=== PATIENT | male | born 1950 | race Caucasian/White ===

== ENCOUNTER 2024-06-13 15:47 | Emergency (ER) | payer MEDICARE, MEDICAID ==
[2024-06-13] MEDS: Morphine 2 MG/ML SYRINGE IM ONE (16:32)
[2024-06-13] MEDS: Acetaminophen/oxyCODONE 325-5 MG Tab PO PRN (17:26)
== END 2024-06-13 17:33 | disposition home or self-care (01) ==
LOC: VM.ED 15:47
DX: S22.42XA Multiple fractures of ribs, left side, initial encounter for closed fracture (principal); I10 Essential (primary) hypertension; E78.00 Pure hypercholesterolemia, unspecified; F17.210 Nicotine dependence, cigarettes, uncomplicated; Z79.899 Other long term (current) drug therapy; W00.0XXA Fall on same level due to ice and snow, initial encounter; Y93.89 Activity, other specified
CPT/HCPCS: 71101-LT; 96372; 99283; 99284; A9270-GY; J2270

== ENCOUNTER 2024-06-15 14:08 | Emergency (ER) | payer MEDICARE, MEDICAID ==
[2024-06-15] MEDS ORDERED: Sodium Chloride 0.9% 10 ML Syringe FLUSH PRN (14:27)
[2024-06-15 14:41] LABS: BASOPHILS PERCENT AUTO 0.2 % (0.2-1.2); EOSINOPHILS PERCENT AUTO 0.2 % (0.0-4.0); HEMATOCRIT 43.7 % (40.0-52.0); HEMOGLOBIN 15.4 g/dL (14.0-18.0); IMMATURE GRAN ABSOLUTE AUTO 0.02 x10^3/uL (0.00-0.07); LYMPHOCYTES ABSOLUTE AUTO 1.3 x10^3/uL (1.0-4.8); LYMPHOCYTES PERCENT AUTO 9.9 % (25.0-50.0); MEAN CORPUSCULAR HEMOGLOBIN 30.9 pg (26.0-32.0); MEAN CORPUSCULAR HGB CONC 35.2 g/dL (32.0-36.0); MEAN CORPUSCULAR VOLUME 87.6 fL (78.0-93.0); MONOCYTES ABSOLUTE AUTO 0.8 x10^3/uL (0.0-0.8); MONOCYTES PERCENT AUTO 6.3 % (2.0-11.0); NEUTROPHILS ABSOLUTE AUTO 10.9 x10^3/uL (1.8-7.7); NEUTROPHILS PERCENT AUTO 83.2 % (50.0-80.0); PLATELET COUNT,PLT 228 x10^3/uL (130-400); RED BLOOD CELL COUNT 4.99 x10^6/uL (4.5-6.0); WHITE BLOOD CELL COUNT,WBC 13.1 x10^3/uL (4.0-10.0)
[2024-06-15] MEDS: HYDROmorphone 1 MG/ML Syringe IVPUSH ONE ×2 (14:42→17:18)
[2024-06-15] MEDS: Ondansetron 4 MG/2 ML SDV IVPUSH ONE (14:43)
[2024-06-15 15:00] LABS: A/G RATIO 1.22; ALANINE AMINOTRANSFERASE,ALT 23 U/L (16-63); ALBUMIN 4.4 g/dL (3.4-5.0); ALKALINE PHOSPHATASE 78 U/L (46-116); ASPARTATE AMNIOTRANSFERASE,AST 16 U/L (15-37); BILIRUBIN TOTAL 0.9 mg/dL (0.2-1.0); BLOOD UREA NITROGEN,BUN 17 mg/dL (7-18); CALCIUM 9.6 mg/dL (8.5-10.1); CARBON DIOXIDE,CO2 29 mmol/L (21-32); CHLORIDE,CL 99 mmol/L (98-107); CREATINE KINASE,CK 143 U/L (39-308); ESTIMATED GFR 79 mL/min (>=60); GLUCOSE RANDOM 134 mg/dL (70-99); SODIUM,NA 140 mmol/L (136-145)
== END 2024-06-15 18:13 | disposition short-term general hospital (02) ==
LOC: VM.ED 14:08
DX: S22.42XD Multiple fractures of ribs, left side, subsequent encounter for fracture with routine healing (principal); R09.02 Hypoxemia; D72.829 Elevated white blood cell count, unspecified; I10 Essential (primary) hypertension; E78.00 Pure hypercholesterolemia, unspecified; Z79.899 Other long term (current) drug therapy; W00.0XXD Fall on same level due to ice and snow, subsequent encounter
CPT/HCPCS: 71250; 80053; 82550; 84484; 85025; 93005; 96374; 96375; 96376; 99285; J1171; J2405